=== PATIENT | male | born 1955 | race Caucasian/White ===

== ENCOUNTER → 2017-06-13 | Outpatient (CLI) | payer MEDICAID ==
[~2017-06-13] MED LIST: ABILIF5PT PO; ADV100/50 INH; ALBU8.5H IH; ALBU8.5H12 IH; FLUT1DIS28 INH; HYDR5SYR2 PO; LIS50 PO; LISD30PT PO; METH54TA10 PO; NICO-218 TD; NOR5/325 PO; PHEN118S56 PO; PRED20TA6 PO; TOBROD OP; TRAM-420 PO
--- NOTE | 2017-06-13 15:02 | EKG ---
FACILITY: [facility] PATIENT NAME: ZULEIKA DELEON : [id number] MR: [id number] V: [id number] EXAM DATE: ORDERING PHYSICIAN: CAMI AMADO TECHNOLOGIST: NITHYA Test Reason : PREOP-KNEE Blood Pressure : / mmHG Vent. Rate : 088 BPM Atrial Rate : 088 BPM P-R Int : 182 ms QRS Dur : 094 ms QT Int : 362 ms P-R-T Axes : 080 076 076 degrees QTc Int : 438 ms Normal sinus rhythm Normal ECG When compared with ECG of 18-FEB-2017 11:55, No significant change was found Confirmed by SANGITA MCWILLIAMS ([id number]) on 06/13/2017 4:05:00 PM Referred By: INGRIS Confirmed By:SANGITA MCWILLIAMS
[2017-06-13 15:09] LABS: PLATELET COUNT, AUTOMATED 184 K/uL (150-450)
--- NOTE | 2017-06-13 15:47 | RADIOLOGY IMAGING REPORT ---
FACILITY: [facility] [place] PATIENT NAME: Arash Peraza : 1955 MR: [id number] V: [id number] EXAM DATE: ORDERING PHYSICIAN: CAMI AMADO TECHNOLOGIST: Location: [facility] Patient: Arash Peraza : 1955 Visit/Account:[id number] Date of Sevice: 06/13/2017 Exam type: CHEST PA AND LAT History: Cough wheezing and shortness of breath Comparison: September 20, 2016. Findings: Again noted is hyperexpansion the lung barron consistent with COPD. There is no evidence of focal in filtrates, pleural effusions or pulmonary edema. Cardiac silhouette is normal in size. No evidence of a pneumothorax or pneumomediastinum. IMPRESSION: 1. Hyperinflation lung barron again noted consistent with COPD although no evidence of acute pulmona ry consolidation Report Dictated By: Liat Salinas MD at 06/13/2017 3:41 PM Report E-Signed By: Liat Salinas MD at 06/13/2017 3:42 PM WSN:[id number]
== END ==
LOC: LAB 14:30
PROVIDERS: ATTEND Anesthesiology
DX: Z01.812 Encounter for preprocedural laboratory examination (principal); Z01.810 Encounter for preprocedural cardiovascular examination; Z01.818 Encounter for other preprocedural examination; R91.8 Other nonspecific abnormal finding of lung field; S83.212A Bucket-handle tear of medial meniscus, current injury, left knee, initial encounter; M94.262 Chondromalacia, left knee; R05 Cough; R06.2 Wheezing; R06.02 Shortness of breath
CPT/HCPCS: 36415; 71046; 82310; 82374; 82435; 82565; 82947; 84132; 84295; 84520; 85025; 93005

== ENCOUNTER → 2017-10-09 | Outpatient (CLI) | payer MEDICAID | LOC: LAB 13:52 | PROVIDERS: ATTEND Nurse Practitioner | DX: L28.0 Lichen simplex chronicus (principal) | CPT/HCPCS: 88305 ==